=== PATIENT | female | born 1960 | race Caucasian/White ===

== ENCOUNTER → 2017-05-13 | Outpatient (CLI) | payer MEDICARE, MEDICAID ==
[~2017-05-13] MED LIST: ACET-77 PO; ALPR0.254 PO; ATOR40TA70 PO; BACL10TA PO; BENZ200C51 PO; BUPR150T20 PO; CARB1DRO OU; CARV6.252 PO; CYCL10TA9 PO; DEXL60CA PO; ENAL10TA PO; FLUT16SP22 NSEACH; FLUT1DIS26 IH; GABA-488 PO; HYDR-3812 PO; LEVO25TA5 PO; LEVO5TAB12 PO; LORA10TA7 PO; RT-ALBUINH IH; SENN-20 PO; SERT50TA2 PO; SERT50TA9 PO; TR1C15 TOP
--- NOTE | 2017-05-13 16:53 | Diagnostic Imaging Report ---
PROCEDURE: CT lumbar spine without contrast. TECHNIQUE: Multiple contiguous axial images were obtained through the lumbar spine without the use of intravenous contrast. Sagittal and coronal reformations were then performed. INDICATION: Lower back pain. Right leg pain. COMPARISON: None. FINDINGS: For the purposes of this exam, last well-formed disc space is denoted the L5-S1 level. Evaluation of the static alignment demonstrates mild grade 1 anterolisthesis of L4 on L5. There also appears to be slight grade 1 retrolisthesis of L5 on S1. There is no evidence of jumped facets. Evaluation of the static transverse alignment also demonstrates slight levoscoliotic deformity also epicentered at the L4-L5 level. Vertebral body heights are maintained. There is no evidence of acute fracture. No bony fragments are seen within the spinal canal. There are multilevel degenerative changes consisting of intervertebral disc height loss with anterior and posterior disc osteophyte complex formations as well as multilevel facet arthropathy. These changes appear greatest at the L4-L5 level where there is also adjacent bony endplate sclerosis, right greater than left. Pre-and paravertebral soft tissue structures show no acute abnormalities. There is mild to moderate calcified aortic and arterial atherosclerosis. Indwelling stent is noted within the left common iliac artery. Spinal canal contents are suboptimally evaluated given CT modality and lack of intrathecal contrast, but review of the axial images demonstrate the following: T11-T12: There is broad-based posterior disc bulge, eccentric to the left. As a result, there is mild asymmetric narrowing of the spinal canal and left neural foramen. There is also minimal narrowing on the right. T12-L1 through L2-L3: There is no large disc bulge or focal protrusion. There is no significant spinal canal or neural foraminal stenosis. L3-L4: There is mild broad-based posterior disc bulge and bilateral ligamentum flavum laxity and facet arthropathy. This likely results in mild narrowing of the spinal canal and bilateral neural foramina, left greater than right. L4-L5: There is unroofing of the disc with broad-based posterior disc bulge. There is also significant bilateral facet arthropathy. As a result, there does appear to be severe spinal canal and bilateral neural foraminal stenosis. L5-S1: There is mild broad-based posterior disc bulge and bilateral facet arthropathy. As a result, there appears to be mild spinal canal and bilateral neural foraminal narrowing. IMPRESSION: 1. Multilevel degenerative changes of lumbar spine, greatest at the L4-L5 level. 2. No acute fracture or dislocation of the lumbar spine. 3. Moderate calcified aortic and arterial atherosclerosis. Correlation for underlying risk factors is recommended. Dictated by: Dictated on workstation # [id number]
== END ==
LOC: RAD 13:20
PROVIDERS: ATTEND Orthopaedic Surgery
DX: M47.816 Spondylosis without myelopathy or radiculopathy, lumbar region (principal); I70.0 Atherosclerosis of aorta
CPT/HCPCS: 72131

== ENCOUNTER → 2017-05-26 | Outpatient (CLI) | payer MEDICARE, MEDICAID ==
--- NOTE | 2017-05-26 17:41 | Diagnostic Imaging Report ---
INDICATION: Neck pain. CT cervical spine obtained without IV contrast with axial slices and sagittal and coronal reconstructions. There is no previous study for comparison. FINDINGS: There was no evidence of cervical spine fracture. There was no subluxation or malalignment. Patient has had previous anterior fusion from C4-C6. The vertebrae appear in good alignment. The facets show diffuse mild degenerative change. There are disc prostheses at C4-C5 and C5-C6. There is no overt evidence of hardware loosening. There is no significant canal stenosis. There is mild neuroforaminal narrowing at C3-C4 due to osteophyte formation. There is mild neuroforaminal narrowing at C5-C6 due to osteophyte formation on both sides. IMPRESSION: Degenerative and postoperative findings in the cervical spine as described above. Patient has had previous fusion from C4-C6. The hardware appears in good alignment with no sign of loosening. Dictated by: Dictated on workstation # [id number]
== END ==
LOC: RAD 15:13
PROVIDERS: ATTEND Orthopaedic Surgery
DX: M47.812 Spondylosis without myelopathy or radiculopathy, cervical region (principal); Z98.1 Arthrodesis status
CPT/HCPCS: 72125

== ENCOUNTER → 2017-08-25 | Outpatient (CLI) | payer MEDICARE, MEDICAID ==
--- NOTE | 2017-08-25 14:56 | Diagnostic Imaging Report ---
PROCEDURE: MR imaging cervical spine without contrast. TECHNIQUE: Multiplanar, multisequence MR imaging of the cervical spine was performed without contrast. INDICATION: Neck pain. Bilateral shoulder pain. FINDINGS: The alignment at the posterior spinal line is satisfactory. There is susceptibility artifacts related to anterior fusion hardware involving C4, C5 and C6 levels with suggestion of a corpectomy at C5 level. The vertebral body heights appear preserved. There is minimal disc height loss at C6-C7 level. Disc desiccation at all levels is seen. There is mild edema around endplates of C6 and C7. The spinal cord has normal caliber, contour, and signal. The foramen magnum and upper cervical canal are widely patent. C2-C3: There is mild disc herniation with no spinal canal stenosis. No foraminal narrowing. C3-C4: There is a spur disc complex causing pyth-wp-ytrikhna spinal canal stenosis reducing the AP dimension of the canal to 8.5 mm. The neural foramina demonstrate bilateral moderate stenosis more prominent on the left side secondary to uncovertebral and facet joint hypertrophy. C4-C5: There is no remaining disc material or significant osteophytes seen. No central canal stenosis. The foramina demonstrate ovnvgafi-hx-tccwph stenosis on the left and no significant stenosis on the right side. C5-C6 fusion level demonstrates no remaining disc material or osteophyte and no spinal canal stenosis. The foramina however demonstrate bilateral moderate stenosis. C6-C7: There is a disc spur complex causing moderate spinal canal stenosis with reduction of the AP dimension of the canal to 7.1 mm. This appears to result in minimal cord compression along the left side of the spinal cord with no cord signal abnormality. The foramina demonstrate kzdyqewl-sf-gynrda stenosis bilaterally. C7-T1: There is a spur disc complex associated with moderate spinal canal stenosis reducing the AP dimension of the canal to 7.4 mm without cord compression. The foramina demonstrate mild stenosis on the right and no significant stenosis on the left. IMPRESSION: There is moderate spinal canal stenosis at C6-C7 and C7-T1 with minimal cord compression along the left side of the spinal cord at C6-C7. There is also multilevel foraminal stenosis as described. Dictated by: Dictated on workstation # [id number]
== END ==
LOC: RAD 13:32
PROVIDERS: ATTEND Thoracic Surgery (Cardiothoracic Vascular Surgery)
DX: M47.812 Spondylosis without myelopathy or radiculopathy, cervical region (principal); M48.02 Spinal stenosis, cervical region
CPT/HCPCS: 72141

== ENCOUNTER 2018-03-03 20:12 | Emergency (ER) | payer MEDICARE, MEDICAID ==
[~2018-03-03] VITALS: Ht 154.9 cm; Wt 86.6 kg
[~2018-03-03 20:12] MED LIST changes: +ACHD5005 PO; -HYDR-3812 PO
[2018-03-03] MEDS ORDERED: LACTATED RINGERS 1,000 ML IV ONE (20:30)
--- NOTE | 2018-03-03 20:38 | ED Fall/Injury ---
General Stated Complaint: POSS STROKE Source: patient, EMS Exam Limitations: no limitations History of Present Illness Date Seen by Provider: March 03, 2018 Time Seen by Provider: 20:09 Initial Comments Patient presents to the ER by EMS with a chief complaint per EMS they were called to the house consult possible stroke with left-sided weakness. EMS reports that there was a initial NIH scale of 0. When asked about the left- sided weakness the patient says she had left-sided weakness in 2016 when she was diagnosed with a stroke that has progressively gotten better since then. She does not felt any worse today than before. She says she has had a couple falls today while transitioning from her walker to her chair and she says this is not necessarily unusual but she feels is more frequent than usual. She denies any fevers chills dysuria but she does have a productive cough. She says she is also feeling up pain in her chest on the right side she's had for a couple days and today a new chest pain substernal. She's never had a heart attack and is not on blood thinners. She says the pain is worse when she presses on her chest or takes deep breaths or coughs. He is supposed to be on oxygen but has not used it since it was prescribed in 2013 because she doesn't like the way it feels in her nose. She denies any loss of consciousness slurring speech or change in her voice. She says the horse character her voice is her baseline. She quit smoking in 2010. She said she is having no radiation of her pain to her neck or jaw or shoulder but she did have a little tingling below her right knee that went away after a few minutes earlier today. She is having pain in her left shoulder after her fall. She says it hurts to lay on it. She landed on her left shoulder one of the times that she fell today. She does have a history of hypertension and a stroke in 2016. EMS reports a blood sugar of 89 when they arrived. Allergies and Home Medications Allergies Coded Allergies: ciprofloxacin (Verified Allergy, Unknown, 04/25/16) Home Medications Acetaminophen 500 Mg Tablet, 500 MG PO Q6HR PRN for MILD PAIN Prescribed by: ALIYAH BURGESS on 05/22/16 1824 Albuterol Sulfate 18 Gm Hfa.aer.ad, 2 PUFF IH Q4H PRN for WHEEZING, (Reported) Alprazolam 0.25 Mg Tablet, 0.25 MG PO TID PRN for ANXIETY Prescribed by: ALIYAH BURGESS on 05/22/161823 Atorvastatin Calcium 40 Mg Tablet, 40 MG PO DAILY, (Reported) Baclofen 10 Mg Tablet, 10 MG PO TID, (Reported) Benzonatate 200 Mg Capsule, 200 MG PO TID PRN for COUGH, (Reported) Bupropion HCl 150 Mg Tablet.er, 150 MG PO BID, (Reported) Carboxymethylcellulose Sodium 1 Each Droperette, 1 EACH OU HS Prescribed by: ALIYAH BURGESS on 05/22/161823 Carboxymethylcellulose Sodium 1 Each Droperette, 0 EACH OU NEEDED PRN for DRY EYES Prescribed by: ALIYAH BURGESS on 05/22/161823 Carvedilol 6.25 Mg Tablet, 6.25 MG PO BID Prescribed by: ALIYAH BURGESS on 05/22/161823 Dexlansoprazole 60 Mg , 60 MG PO DAILY, (Reported) Enalapril Maleate 10 Mg Tablet, 10 MG PO BID Prescribed by: ALIYAH BURGESS on 05/22/161823 Fluticasone Propionate 16 Gm [place].susp, 2 SPRAYS NSEACH DAILY, (Reported) Fluticasone/Salmeterol 1 Each Blst.w.dev, 1 EACH IH DAILY, (Reported) Gabapentin 300 Mg Capsule, 600 MG PO TID, (Reported) Levothyroxine Sodium 25 Mcg Tablet, 50 MCG PO DAILY, (Reported) Loratadine 10 Mg Tablet, 10 MG PO DAILY Prescribed by: ALIYAH BURGESS on 05/22/161823 Sennosides/Docusate Sodium 1 Each Tablet, 1 EA PO BID Prescribed by: ALIYAH BURGESS on 05/22/161823 Sertraline HCl 50 Mg Tablet, 50 MG PO HS Prescribed by: ALIYAH BURGESS on 05/22/161823 Triamcinolone Acet 15 Gm Cr, 0 GM TOP BID Prescribed by: ALIYAH BURGESS on 05/22/161823 Patient Home Medication List Home Medication List Reviewed: Yes Review of Systems Constitutional: No chills, No diaphoresis Eyes: Denies Blindness, Denies Blurred Vision, Denies Drainage Ears, Nose, Mouth, Throat: denies ear pain, denies ear discharge Respiratory: cough, phlegm; No short of breath, No stridor, No wheezing Cardiovascular: see HPI, chest pain; No edema Gastrointestinal: No abdominal pain, No constipation, No diarrhea, No nausea Genitourinary: No discharge, No dysuria, No frequency : No Musculoskeletal: No back pain; joint pain (left shoulder) Skin: No pruritus, No rash Past Qcxcenu-Tyccfu-Cmllmj Hx Patient Social History Former Smoker, Quit: Nov 25, 2011 Recent Hopitalizations: Yes Immunizations Up To Date Date of Pneumonia Vaccine: Sep 21, 2015 Past Medical History Orthopedic Sleep Apnea, COPD High Cholesterol, Hypertension UTI-Chronic Degenerate Disk Disease Hypothyroidsim Depression Family Medical History Hypertension Physical Exam Vital Signs Vital Signs - First Documented 03/03/18 20:35 Temp 97.4 Pulse 81 Resp 20 B/P (MAP) 115/83 (94) Pulse Ox 98 Capillary Refill : General Appearance: WD/WN, no apparent distress HEENT: PERRL/EOMI, normal ENT inspection, TMs normal, pharynx normal Neck: non-tender, full range of motion, supple, normal inspection Cardiovascular: normal peripheral pulses, regular rate, rhythm, no edema Respiratory: lungs clear, normal breath sounds, no respiratory distress, no accessory muscle use, other (chest wall pain reproduced by light palpitation) Peripheral Pulses: 2+ Dorsalis Pedis (R), 2+ Left Dors-Pedis (L), 2+ Radial Pulses (R), 2+ Radial Pulses (L) Gastrointestinal: normal bowel sounds, non tender, soft Extremities: normal range of motion, normal inspection, no pedal edema, no calf tenderness, normal capillary refill, other (tenderness to palpation over left before meals joint and glenohumeral joint without any erythema or ecchymosis or edema) Neurologic/Psychiatric: medical radiation therapist II-XII nml as tested, no motor/sensory deficits, alert, normal mood/affect, oriented x 3, other (NIH score of 0) Skin: normal color, warm/dry Wong Coma Score Best Eye Response: (4) Open Spontaneously Best Verbal Response: (5) Oriented Best Motor Response: (6) Obeys Commands Wong Total: 15 Procedures/Interventions Date of ETT Placement: Apr 22, 2016 Time of ETT Placement: 0910 Progress/Results/Core Measures Lab Results Laboratory Tests Test 03/03/18 20:30 5/2/18 21:00 Range/Units White Blood Count 9.3 4.3-11.0 10^3/uL Red Blood Count 4.05 L 4.35-5.85 10^6/uL Hemoglobin 12.3 11.5-16.0 G/DL Hematocrit 37 35-52 % Mean Corpuscular Volume 91 80-99 FL Mean Corpuscular Hemoglobin 30 25-34 PG Mean Corpuscular Hemoglobin Concent 33 32-36 G/DL Red Cell Distribution Width 14.8 H 10.0-14.5 % Platelet Count 240 130-400 10^3/uL Mean Platelet Volume 9.7 7.4-10.4 FL Neutrophils (%) (Auto) 59 42-75 % Lymphocytes (%) (Auto) 30 12-44 % Monocytes (%) (Auto) 9 0-12 % Eosinophils (%) (Auto) 2 0-10 % Basophils (%) (Auto) 0 0-10 % Neutrophils # (Auto) 5.5 1.8-7.8 X 10^3 Lymphocytes # (Auto) 2.8 1.0-4.0 X 10^3 Monocytes # (Auto) 0.9 0.0-1.0 X 10^3 Eosinophils # (Auto) 0.2 0.0-0.3 10^3/uL Basophils # (Auto) 0.0 0.0-0.1 10^3/uL Sodium Level 140 135-145 MMOL/L Potassium Level 4.2 3.6-5.0 MMOL/L Chloride Level 108 H 98-107 MMOL/L Carbon Dioxide Level 23 21-32 MMOL/L Anion Gap 9 5-14 MMOL/L Blood Urea Nitrogen 15 7-18 MG/DL Creatinine 1.11 0.60-1.30 MG/DL Estimat Glomerular Filtration Rate 50 BUN/Creatinine Ratio 14 Glucose Level 83 70-105 MG/DL Calcium Level 9.0 8.5-10.1 MG/DL Total Bilirubin 0.6 0.1-1.0 MG/DL Aspartate Amino Transf (AST/SGOT) 18 5-34 U/L Alanine Aminotransferase (ALT/SGPT) 11 0-55 U/L Alkaline Phosphatase 93 40-136 U/L Troponin I < 0.30 <0.30 NG/ML Total Protein 7.0 6.4-8.2 GM/DL Albumin 4.0 3.2-4.5 GM/DL Urine Color YELLOW Urine Clarity CLEAR Urine pH 7 5-9 Urine Specific [place] 1.010 L 1.016-1.022 Urine Protein NEGATIVE NEGATIVE Urine Glucose (UA) NEGATIVE NEGATIVE Urine Ketones NEGATIVE NEGATIVE Urine Nitrite POSITIVE H NEGATIVE Urine Bilirubin NEGATIVE NEGATIVE Urine Urobilinogen NORMAL NORMAL MG/DL Urine Leukocyte Esterase 3+ H NEGATIVE Urine RBC (Auto) NEGATIVE NEGATIVE Urine RBC NONE /HPF Urine WBC TNTC H /HPF Urine Squamous Epithelial Cells 0-2 /HPF Urine Crystals NONE /LPF Urine Bacteria LARGE H /HPF Urine Casts NONE /LPF Urine Mucus NEGATIVE /LPF Urine Culture Indicated YES My Orders Orders - SAKINA DUCKWORTH Cbc With Automated Diff (03/03/18 20:30) Comprehensive Metabolic Panel (03/03/18 20:30) Troponin I (03/03/18 20:30) Ua Culture If Indicated (03/03/18 20:30) Chest 1 View, Ap/Pa Only (03/03/18 20:30) Saline Lock/Iv-Start (03/03/18 20:30) Lactated Ringers (Lr 1000 Ml Iv Solution (03/03/18 20:30) Continuous Ekg Monitoring (03/03/18 20:30) Ekg Tracing (03/03/18 20:30) Shoulder, Left, 3 Views (03/03/18 20:38) Ct Head/Cervical Spine Wo (03/03/18 20:42) Urine Culture (03/03/18 21:00) Ceftriaxone Injection (Rocephin Injectio (03/03/18 21:45) Medications Given in ED Current Medications Medications Dose Ordered Sig/Yolanda Route Start Time Stop Time Status Last Admin Dose Admin Lactated Ringer's 1,000 ml @ 0 mls/hr Q0M ONCE IV 03/03/18 20:30 03/03/18 20:34 DC 03/03/18 20:57 0 MLS/HR Vital Signs/I&O 03/03/18 20:35 Temp 97.4 Pulse 81 Resp 20 B/P (MAP) 115/83 (94) Pulse Ox 98 Progress Note : Time: 20:40 Progress Note It seems when the patient was calling for an ambulance to come get her because of her falls and her pain in her left shoulder as well as her chest pain that is worsened with her cough that has her most concern. She may have described having left-sided weakness as a residual deficit of her recent stroke but she is denying that anything is changed she has no evidence of left-sided weakness, drift. Motor and sensory are intact all 4 extremities. She supposed to be wearing oxygen and she will desat down to 88% just while talking in the ER on room air. Concern for pneumonia versus cardiogenic source of her chest pain. It appears to be more chest wall involved, possibly even pleuritic though based on examination. We'll get a CT scan of her head looking for evidence of a bleed given her recent falls. We'll obtain some urine and blood work looking for signs of infection may contribute to her increased proclivity for falls recently. Initial ECG Impression Date: March 03, 2018 Initial ECG Impression Time: 20:55 Initial ECG Rate: 77 Initial ECG Rhythm: Normal Sinus Initial ECG Intervals: Normal Initial ECG Impression: Normal, Nonspecific Changes Comment Left ventricular hypertrophy without ST-T wave elevation or depression. Diagonstic Imaging: Xray Plain Films/CT/US/NM/MRI: chest (1v) Comments No acute cardiopulmonary processes [facility]IA [facility]. [place], [place] NAME: [facility] REC#: [id number] PT STATUS: REG ER : 1960 PHYSICIAN: SAKINA DUCKWORTH MD ADMIT DATE: 03/03/18/ER Draft Date of Exam:03/03/18 CHEST 1 VIEW, AP/PA ONLY EXAMINATION: Chest radiograph, portable AP view. DATE: March 03, 2018 at 2139 hours. INDICATION: 57-year-old female, fall. Left shoulder and neck pain. COMPARISON: 05/08/2016. FINDINGS: There is cervical spinal fusion hardware. Stable overall appearance of the cardiomediastinal silhouette. There is no identified pneumothorax. There is no large pleural effusion. There is no identified interval focal airspace consolidation. There are right upper quadrant surgical clips that likely relate to prior cholecystectomy. There is no identified significantly displaced rib fracture. There is no otherwise visible fracture. IMPRESSION: 1. No identified acute cardiopulmonary abnormality. 2. No identified significantly displaced rib fracture. Dictated on workstation # [id number] Dict: 03/03/182125 Trans: 03/03/182132 BUCKY [id number] Interpreted by: THEO MONTANO MD Electronically signed by: Reviewed: Reviewed by Ma Diagonstic Imaging: Xray Plain Films/CT/US/NM/MRI: other (left shoulder) Comments No acute osseous abnormalities. [facility] [place], [place] NAME: INES [facility] REC#: [id number] PT STATUS: REG ER : 1960 PHYSICIAN: SAKINA DUCKWORTH MD ADMIT DATE: 03/03/18/ER Draft Date of Exam:03/03/18 SHOULDER, LEFT, 3 VIEWS EXAMINATION: Left shoulder, 3 views. COMPARISON: None. HISTORY: 57-year-old female, fall. Left shoulder and neck pain. FINDINGS: The acromioclavicular joint is normally aligned. There are mild acromioclavicular degenerative changes without large undersurface osteophyte. There is cervical spinal fusion hardware. The humeral head is normally positioned relative to the glenoid. There is no identified acute fracture. The glenohumeral joint is unremarkable in appearance. IMPRESSION: 1. No identified acute bony abnormality of the left shoulder. 2. Mild acromioclavicular degenerative changes without large undersurface osteophyte. Dictated on workstation # [id number] Dict: 03/03/182135 Trans: 03/03/182141 [id number] [id number] Interpreted by: THEO MONTANO MD Electronically signed by: Reviewed: Reviewed by Ma Diagonstic Imaging: CT Plain Films/CT/US/NM/MRI: head Comments No intracranial hemorrhage, tumor, midline shift. C-spine without acute fracture or subluxation. Hardware in proper placement. [facility] [place] NAME: [facility] REC#: [id number] PT STATUS: REG ER : 1960 PHYSICIAN: SAKINA DUCKWORTH MD ADMIT DATE: 03/03/18/ER Draft Date of Exam:03/03/18 CT HEAD/CERVICAL SPINE WO PROCEDURE: CT head and CT cervical spine without contrast. TECHNIQUE: Multiple contiguous axial images were obtained through the brain and cervical spine without the use of intravenous contrast. Sagittal and coronal reformations through the cervical spine were then performed. DATE: March 03, 2018. COMPARISON: MRI cervical spine 08/25/2017. CT cervical spine 05/26/2017. CT head 05/27/2016. INDICATION: 57-year-old female, fall. Left shoulder and left neck pain. FINDINGS: There is a CSF attenuation tract subjacent to the right lateral ventricle which most likely relates to sequela of prior right periventricular white matter infarct. The ventricles and cerebral spinal fluid spaces are of normal size and configuration for the patient's age. There is no mass effect or midline shift. There is no acute intracranial hemorrhage. There is no abnormal extra-axial fluid collection. The visualized portions of the paranasal sinuses, mastoid air cells and middle ears are well aerated. There is no identified facet joint subluxation or dislocation. There are multilevel moderate facet degenerative changes of the cervical spine. There is no asymmetric widening of the cervical disc spaces. There is anterior cervical spinal fusion hardware spanning C4-C6. The hardware appears intact. There is hardware associated artifact. There is moderate disc height loss at C3-C4 and C6-C7. There are adjacent endplate degenerative changes. CT is limited for assessment of disc pathology as well as additional non-bony causes of foraminal and spinal stenosis. There is no identified acute fracture of the cervical spine. There are linear opacities in the lung apices which are nonspecific although may potentially reflect atelectasis. There is a probable aberrant right subclavian artery which is prominent in caliber. This is measured up to 2.6 cm in diameter. IMPRESSION: 1. No identified acute intracranial abnormality. 2. Remote prior right periventricular white matter infarct. 3. No identified acute abnormality of the cervical spine. 4. 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 Dictated on workstation # [id number] Dict: 03/03/182126 Trans: 03/03/182136 PJE [id number] Interpreted by: THEO MONTANO MD Electronically signed by: Reviewed: Reviewed by Me Departure Impression Primary Impression: Fall Qualified Codes: W19.XXXA - Unspecified fall, initial encounter Additional Impressions: UTI (urinary tract infection) Qualified Codes: N30.00 - Acute cystitis without hematuria Shoulder pain, left Qualified Codes: M25.512 - Pain in left shoulder Disposition: 01 HOME, SELF-CARE Condition: Stable Departure-Patient Inst. Referrals: PETER CROSS MD (PCP/Family) Primary Care Physician Patient Instructions: Urinary Tract Infection, Adult (DC) Add. Discharge Instructions: Drink plenty of fluids and pick pack worker the antibiotics at [facility] and start taking the Keflex one capsule twice a day for the next week. Follow up with your primary care physician in the next 1-2 weeks to make sure everything is doing well. For your left shoulder can use ice packs for the first 2 or 3 days as well as heating pads, Tylenol 1000 mg every 8 hours and/or ibuprofen 800 mg every 8 hours as needed for pain. Scripts Cephalexin (Keflex) 500 Mg Capsule 500 MG PO BID for 7 Days, #14 CAP 0 Refills Prov: SAKINA DUCKWORTH 03/03/18 SAKINA DUCKWORTH March 03, 2018 20:37
[2018-03-03 20:39] LABS: BASOPHILS % (AUTO) 0 % (0-10); EOSINOPHILS # (AUTO) 0.2 10^3/uL (0.0-0.3); EOSINOPHILS % (AUTO) 2 % (0-10); HEMATOCRIT 37 % (35-52); HEMOGLOBIN 12.3 G/DL (11.5-16.0); LYMPHOCYTES # (AUTO) 2.8 X 10^3 (1.0-4.0); LYMPHOCYTES % (AUTO) 30 % (12-44); MEAN CORPUSCULAR HEMOGLOBIN 30 PG (25-34); MEAN CORPUSCULAR HGB CONC 33 G/DL (32-36); MEAN CORPUSCULAR VOLUME 91 FL (80-99); MEAN PLATELET VOLUME 9.7 FL (7.4-10.4); MONOCYTES # (AUTO) 0.9 X 10^3 (0.0-1.0); MONOCYTES % (AUTO) 9 % (0-12); NEUTROPHILS # (AUTO) 5.5 X 10^3 (1.8-7.8); NEUTROPHILS % (AUTO) 59 % (42-75); PLATELET COUNT 240 10^3/uL (130-400); RED BLOOD COUNT 4.05 10^6/uL (4.35-5.85); RED CELL DISTRIBUTION WIDTH 14.8 % (10.0-14.5); WHITE BLOOD COUNT 9.3 10^3/uL (4.3-11.0)
[2018-03-03 20:58] LABS: ALANINE AMINOTRANSFERASE 11 U/L (0-55); ALKALINE PHOSPHATASE 93 U/L (40-136); BILIRUBIN,TOTAL 0.6 MG/DL (0.1-1.0); BUN/CREATININE RATIO 14; CARBON DIOXIDE 23 MMOL/L (21-32); CHLORIDE 108 MMOL/L (98-107); CREATININE SERUM 1.11 MG/DL (0.60-1.30); GFR ESTIMATED 50; GLUCOSE 83 MG/DL (70-105); POTASSIUM 4.2 MMOL/L (3.6-5.0); SODIUM 140 MMOL/L (135-145)
[2018-03-03 21:14] LABS: BILIRUBIN,URINE NEGATIVE (NEGATIVE); CLARITY,URINE CLEAR; COLOR,URINE YELLOW; GLUCOSE, URINE (UA) NEGATIVE (NEGATIVE); KETONES,URINE NEGATIVE (NEGATIVE); LEUKOCYTE ESTERASE ,URINE 3+ (NEGATIVE); NITRITE,URINE POSITIVE (NEGATIVE); PH,URINE 7 (5-9); PROTEIN,URINE NEGATIVE (NEGATIVE); UROBILINOGEN,URINE NORMAL (NORMAL)
[2018-03-03 21:20] LABS: BACTERIA,URINE LARGE /HPF; SQUAMOUS EPITHELIAL CELL,UR 0-2 /HPF; WBC,URINE TNTC /HPF
--- NOTE | 2018-03-03 21:34 | Diagnostic Imaging Report ---
EXAMINATION: Chest radiograph, portable AP view. DATE: March 03, 2018 at 2139 hours. INDICATION: 57-year-old female, fall. Left shoulder and neck pain. COMPARISON: 05/08/2016. FINDINGS: There is cervical spinal fusion hardware. Stable overall appearance of the cardiomediastinal silhouette. There is no identified pneumothorax. There is no large pleural effusion. There is no identified interval focal airspace consolidation. There are right upper quadrant surgical clips that likely relate to prior cholecystectomy. There is no identified significantly displaced rib fracture. There is no otherwise visible fracture. IMPRESSION: 1. No identified acute cardiopulmonary abnormality. 2. No identified significantly displaced rib fracture. Dictated by: Dictated on workstation # [id number]
--- NOTE | 2018-03-03 21:37 | Diagnostic Imaging Report ---
PROCEDURE: CT head and CT cervical spine without contrast. TECHNIQUE: Multiple contiguous axial images were obtained through the brain and cervical spine without the use of intravenous contrast. Sagittal and coronal reformations through the cervical spine were then performed. DATE: March 03, 2018. COMPARISON: MRI cervical spine 08/25/2017. CT cervical spine 05/26/2017. CT head 05/27/2016. INDICATION: 57-year-old female, fall. Left shoulder and left neck pain. FINDINGS: There is a CSF attenuation tract subjacent to the right lateral ventricle which most likely relates to sequela of prior right periventricular white matter infarct. The ventricles and cerebral spinal fluid spaces are of normal size and configuration for the patient's age. There is no mass effect or midline shift. There is no acute intracranial hemorrhage. There is no abnormal extra-axial fluid collection. The visualized portions of the paranasal sinuses, mastoid air cells and middle ears are well aerated. There is no identified facet joint subluxation or dislocation. There are multilevel moderate facet degenerative changes of the cervical spine. There is no asymmetric widening of the cervical disc spaces. There is anterior cervical spinal fusion hardware spanning C4-C6. The hardware appears intact. There is hardware associated artifact. There is moderate disc height loss at C3-C4 and C6-C7. There are adjacent endplate degenerative changes. CT is limited for assessment of disc pathology as well as additional non-bony causes of foraminal and spinal stenosis. There is no identified acute fracture of the cervical spine. There are linear opacities in the lung apices which are nonspecific although may potentially reflect atelectasis. There is a probable aberrant right subclavian artery which is prominent in caliber. This is measured up to 2.6 cm in diameter. IMPRESSION: 1. No identified acute intracranial abnormality. 2. Remote prior right periventricular white matter infarct. 3. No identified acute abnormality of the cervical spine. 4. 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 Dictated by: Dictated on workstation # [id number]
--- NOTE | 2018-03-03 21:42 | Diagnostic Imaging Report ---
EXAMINATION: Left shoulder, 3 views. COMPARISON: None. HISTORY: 57-year-old female, fall. Left shoulder and neck pain. FINDINGS: The acromioclavicular joint is normally aligned. There are mild acromioclavicular degenerative changes without large undersurface osteophyte. There is cervical spinal fusion hardware. The humeral head is normally positioned relative to the glenoid. There is no identified acute fracture. The glenohumeral joint is unremarkable in appearance. IMPRESSION: 1. No identified acute bony abnormality of the left shoulder. 2. Mild acromioclavicular degenerative changes without large undersurface osteophyte. Dictated by: Dictated on workstation # [id number]
[2018-03-03] MEDS ORDERED: cefTRIAXone INJECTION 1,000 MG in NS (IVPB) 100 ML IV ONE (21:45)
[2018-03-03] MEDS ORDERED: CEPH-507 PO (21:51)
[2018-03-03 22:55] VITALS: BP 115/83
== END 2018-03-03 22:55 | disposition home or self-care (01) ==
LOC: EDUNIT# 20:12 → ER 20:13
DX: M25.512 Pain in left shoulder (principal); N39.0 Urinary tract infection, site not specified; R40.2142 Coma scale, eyes open, spontaneous, at arrival to emergency department; R40.2252 Coma scale, best verbal response, oriented, at arrival to emergency department; R40.2362 Coma scale, best motor response, obeys commands, at arrival to emergency department; G47.30 Sleep apnea, unspecified; J44.9 Chronic obstructive pulmonary disease, unspecified; E78.00 Pure hypercholesterolemia, unspecified; I10 Essential (primary) hypertension; E03.9 Hypothyroidism, unspecified; F32.9 Major depressive disorder, single episode, unspecified; Z86.73 Personal history of transient ischemic attack (TIA), and cerebral infarction without residual deficits; Z88.1 Allergy status to other antibiotic agents; Z79.51 Long term (current) use of inhaled steroids; W19.XXXA Unspecified fall, initial encounter
CPT/HCPCS: 36415; 70450; 71045; 72125; 73030; 80053; 81000; 84484; 85025; 87077; 87088; 87186; 93005; 96361; 96365